=== PATIENT | female | born 1965 | race Caucasian/White ===

== ENCOUNTER 2019-05-24 05:35 | Inpatient (IN) | payer BC ==
[2019-05-24] MEDS ORDERED: Celecoxib 200 MG Cap PO ONE (06:22)
[2019-05-24] MEDS ORDERED: Scopolamine 1.5 MG Transdermal Patch TOP ONE (06:22)
[2019-05-24] MEDS ORDERED: Gabapentin 300 MG Cap PO ONE (06:23)
[2019-05-24] MEDS ORDERED: Acetaminophen 500 MG Tab PO ONE (06:23)
[2019-05-24] MEDS ORDERED: cefOXitin 2 GM in Sodium Chloride 0.9% 50 ML IV ONE (06:24)
[2019-05-24] MEDS ORDERED: Dextrose 5%-Lactated Ringers 1,000 ML IV SCH ×2 (06:30→11:15)
[2019-05-24 07:03] LABS: HEMOGLOBIN A1C 8.5 % (4.5-6.2)
[2019-05-24] MEDS ORDERED: fentaNYL 250 MCG/5 ML SDV ONE (07:04)
[2019-05-24] MEDS ORDERED: Rocuronium 50 MG/5 ML Vial ONE (07:05)
[2019-05-24] MEDS ORDERED: Dexamethasone 4 MG/ML SDV ONE (07:05)
[2019-05-24] MEDS ORDERED: Succinylcholine 200 MG/10 ML MDV ONE (07:05)
[2019-05-24] MEDS ORDERED: Glycopyrrolate 0.2 MG/ML 5 ML MDV ONE (07:05)
[2019-05-24] MEDS ORDERED: Propofol 200 MG/20 ML SDV ONE (07:05)
[2019-05-24] MEDS ORDERED: Neostigmine Methylsulfate 1 MG/ML 5 ML Syringe ONE (07:05)
[2019-05-24] MEDS ORDERED: Ondansetron 4 MG/2 ML SDV ONE (07:05)
[2019-05-24] MEDS ORDERED: Lactated Ringers 1,000 ML ONE (07:09)
[2019-05-24] MEDS ORDERED: Propranolol 40 MG Tab PO ONE (07:15)
[2019-05-24] MEDS ORDERED: Ketamine 500 MG/5 ML MDV IV SCH (07:30)
[2019-05-24] MEDS ORDERED: Lidocaine 2% 100 MG/5 ML Syringe IVPUSH SCH (07:30)
[2019-05-24] MEDS ORDERED: Ketamine 50 MG in Sodium Chloride 0.9% 49.5 ML IV SCH (07:30)
[2019-05-24] MEDS ORDERED: cefOXitin 2 GM Vial ONE (07:37)
[2019-05-24] MEDS: Insulin Lispro 100 Unit/ML 3 ML KwikPen SUBCUT PRN ×3 (09:38→22:56)
[2019-05-24] MEDS ORDERED: SCOPOLAMINE PATCH CHECK TOP SCH (11:16)
[2019-05-24] MEDS ORDERED: Metoclopramide 10 MG/2 ML SDV IVPUSH PRN (11:16)
[2019-05-24] MEDS ORDERED: HYDROmorphone 0.5 MG/0.5 ML Syringe IVPUSH PRN (11:16)
[2019-05-24] MEDS ORDERED: HYDROmorphone 1 MG/ML Syringe IV PRN (11:16)
[2019-05-24] MEDS ORDERED: hydrOXYzine HCL 100 MG/2 ML SDV IM PRN (11:16)
[2019-05-24] MEDS ORDERED: Labetalol 20 MG/4 ML Syringe IVPUSH PRN (11:16)
[2019-05-24] MEDS ORDERED: diphenhydrAMINE 50 MG/ML SDV IVPUSH PRN (11:16)
[2019-05-24] MEDS ORDERED: Ondansetron 4 MG/2 ML SDV IVPUSH PRN (11:16)
[2019-05-24] MEDS ORDERED: Cyclobenzaprine 10 MG Tab PO PRN (11:28)
[2019-05-24] MEDS ORDERED: oxyCODONE 5 MG Tab PO PRN (11:29)
[2019-05-24] MEDS: Lidocaine 0.4%/D5W 2 GM/500 ML BAG IV SCH (11:35)
[2019-05-24] MEDS: Lactated Ringers 1,000 ML IV SCH (11:35)
[2019-05-24] MEDS: Pantoprazole 40 MG Vial IVPUSH SCH (12:46)
[2019-05-24] MEDS: cefOXitin 2 GM in Sodium Chloride 0.9% 50 ML IV SCH ×2 (12:47→17:41)
[2019-05-24] MEDS: Acetaminophen 500 MG Tab PO SCH ×2 (14:27→21:06)
[2019-05-24] MEDS: amLODIPine 5 MG Tab PO SCH (14:27)
[2019-05-24] MEDS: Magnesium Sulfate/Water 2 GM in Premix Bag 1 BAG IV SCH ×2 (14:28→21:00)
[2019-05-24] MEDS: Propranolol 40 MG Tab PO SCH ×2 (14:28→21:05)
[2019-05-24] MEDS: Gabapentin 250 MG/5 ML Solution ML 470 ML Bottle PO SCH ×2 (14:28→20:59)
[2019-05-24] MEDS ORDERED: Acetaminophen 500 MG Tab PO PRN (16:00)
[2019-05-24] MEDS: Heparin Sodium 5,000 Units/ML Vial SUBCUT SCH (16:27)
[2019-05-24] MEDS: MVI, Adult with Vitamin K 10 ML, Thiamine 200 MG, Chromium/Copper/Mang/Selen/Zn 1 ML in... IV SCH ×4 (16:36)
[2019-05-24] MEDS ORDERED: metFORMIN 500 MG/5 ML PO SCH (17:00)
[2019-05-24] MEDS: Venlafaxine 75 MG Tab PO SCH (21:04)
[2019-05-25] MEDS: cefOXitin 2 GM in Sodium Chloride 0.9% 50 ML IV SCH (01:28)
[2019-05-25] MEDS: Magnesium Sulfate/Water 2 GM in Premix Bag 1 BAG IV SCH ×4 (02:58→20:21)
[2019-05-25] MEDS: Lactated Ringers 1,000 ML IV SCH ×2 (02:58→13:26)
[2019-05-25] MEDS: Heparin Sodium 5,000 Units/ML Vial SUBCUT SCH ×2 (03:02→15:16)
[2019-05-25] MEDS ORDERED: Iopamidol 612 MG/ML 50 ML SDV PO STA (03:07)
--- NOTE | 2019-05-25 04:46 | CRLCR ---
Indication: Status post Zelda-en-Y Technique: Two views of the abdomen obtained following the administration of oral contrast. Comparison: None available Findings/Impression : A left upper quadrant surgical drain. Cholecystectomy and right lower quadrant surgical clips. Oral contrast opacifies the distal esophagus and proximal jejunum on the 1st image, with progression of contrast into more distal left abdominal jejunal segments on the 2nd image. No gross extravasation seen. Dictated by Ronak Serra MD @ 05/25/2019 4:45:17 AM Dictated by: Ronak Serra MD @ 05/25/2019 04:45:24 (Electronically Signed)
[2019-05-25] MEDS: Acetaminophen 500 MG Tab PO SCH ×3 (05:40→22:52)
[2019-05-25] MEDS ORDERED: Ondansetron 4 MG Tab.DIS PO PRN (07:05)
--- NOTE | 2019-05-25 07:29 | PN ---
DATE OF SERVICE: 05/25/2019 SUBJECTIVE: Marley is postoperative day# 1 following a Zelda-en-Y gastric bypass surgery. Vital signs have been stable. Her pain has been well managed. She is at 720 mL in of step 1 gastric bypass diet, 1200 out. Her ANJALI drain put out 70 mL of a serosanguineous drainage. Blood sugars have been 230, 281, and the last one was 257. She is getting the magnesium for a magnesium of 1.7. REVIEW OF SYSTEMS: Remainder of review of systems negative for any pertinent positives and negatives. PHYSICAL EXAMINATION: GENERAL: Marely Stock is a pleasant 54-year-old female. VITAL SIGNS: TPR is 97.4, 71, 18, blood pressure is 95/57. HEENT: Negative. NECK: Supple. HEART: Regular rate and rhythm. LUNGS: Clear. ABDOMEN: Dressings dry and intact. Abdominal binder is on. ANJALI drain as above. EXTREMITIES: Without peripheral edema. ASSESSMENT: 1. Laparoscopic Zelda-en-Y gastric bypass surgery, liver biopsy, repair of diaphragmatic hernia, and excision of mediastinal lipoma for morbid obesity, hepatomegaly, diaphragmatic hernia, and mediastinal lipoma. Date of surgery: 05/24/2019. Surgeon: Fabricio Taylor MD. 2. Uncontrolled diabetes. Last A1c 8.5. 3. Hypomagnesemia. 4. Morbid obesity, BMI 45. 5. Hyperlipidemia. 6. Hypertension. 7. Elevated liver function tests. 8. Major depression. 9. Crawley esophagus. 10.Migraine headache without aura. PLAN: 1. Discontinue D5LR IV. 2. Continue lactated Ringer's IV running at 100 mL/h. 3. Rx metformin 1000 mg b.i.d. 4. Communication order: 3 med cups per hour, 1 every 20 minutes. 5. Dressing off, may shower. 6. Step 2 gastric bypass diet with no cereal. 7. Good pulmonary toilet. 8. We will evaluate p.r.n. or in a.m. Kaitlin Nugent PA-C /[id number]
[2019-05-25] MEDS: Venlafaxine 75 MG Tab PO SCH ×2 (08:53→20:23)
[2019-05-25] MEDS: Celecoxib 200 MG Cap PO SCH ×2 (08:53→20:22)
[2019-05-25] MEDS: Propranolol 40 MG Tab PO SCH ×3 (08:53→20:23)
[2019-05-25] MEDS: amLODIPine 5 MG Tab PO SCH (08:55)
[2019-05-25] MEDS ORDERED: [UNRECOGNIZED DRUG - REMARK] TOP SCH (09:00)
[2019-05-25] MEDS: Gabapentin 250 MG/5 ML Solution ML 470 ML Bottle PO SCH ×3 (09:00→20:21)
--- NOTE | 2019-05-25 11:22 | OR ---
DATE OF PROCEDURE: 05/24/2019 SURGEON: Fabricio Taylor MD PREOPERATIVE DIAGNOSES: 1. Morbid obesity. 2. Elevated liver function test. POSTOPERATIVE DIAGNOSES: 1. Morbid obesity. 2. Marked hepatomegaly with elevated liver function test. 3. Paraesophageal diaphragmatic hernia. 4. Mediastinal lipoma. OPERATIVE PROCEDURES: Diagnostic laparoscopy with: 1. Laparoscopic Zelda-en-Y gastric bypass with long-limb gastroenterostomy (73882). 2. Dameon-Cut needle liver biopsy (65130). 3. Repair of paraesophageal diaphragmatic hernia (43502). 4. Excision of mediastinal lipoma (36487). ANESTHESIA: General. INDICATION FOR PROCEDURE: This is a 54-year-old female presenting with longstanding morbid obesity and increasingly significant comorbidities. After preoperative evaluation and discussion, she wished to proceed with a gastric bypass procedure. Potential risks of the procedure including bleeding, infection, leaks from various GI tract closures, problems with bowel obstruction over time, as well as possibility of cardiopulmonary, septic, or hemorrhagic complications leading to were discussed, and the patient wishes to proceed. DETAILS OF PROCEDURE: The patient was taken to the operating room and placed in a supine position. After general endotracheal anesthesia was induced, she was converted to a lithotomy position, and the abdomen was prepped and draped. At 15 cm inferior and 5 cm left of the xiphoid process, a transverse incision was made, and the peritoneal cavity entered under direct vision with an Optiview trocar, inflated to 15 mmHg pressure with CO2. Laparoscope was reinserted and no underlying trocar insertion site injuries were seen. Following this, 5 additional trocars were placed across the upper and mid abdomen and bilateral transversus abdominis plane blocks. Initial examination of the liver showed it to be strikingly enlarged. Liver was quite pale and edematous, indicative of fairly active inflammation. Dameon-Cut needle biopsy was obtained from the left lobe of liver. Minimal bleeding from the biopsy sites was controlled with electrocautery. The omentum was then divided in the midline up to the level of the transverse colon. This allowed identification of the small bowel at the ligament of Treitz. Small bowel was traced out 150 cm distal to that point. This was further divided transversely with a REE stapler. Small bowel was then traced out additional 150 cm, where the [id number] enteroenterostomy was accomplished with an internal firing of the Endo-REE 60 mm stapler. Common opening was then closed transversely with the same stapler and angles anastomosed and mesenteric defect approximated with some 0 Ethibond stitch, along with 4 mL of fibrin sealant. Divided end of the Zelda limb was then from mesentery for a few centimeters, which allowed an antecolic position of the Zelda limb up to the level of the gastroesophageal junction without tension. The liver was then retracted anteriorly. The patient was noted to have a moderate-sized paraesophageal hernia. This contained some perigastric fat and some gastric fundus prolapsing in a plane anterior to the course of the esophagus. This was reduced and peritoneum overlying was incised and reflected downward. The patient had a mediastinal lipoma, which was excised as part of the dissection to facilitate a more adequate crural repair. Crural repair was then accomplished anteriorly with 0 Ethibond sutures reinforced with PTFE pledgets. Gastrointestinal balloon catheter was then inflated to 15 mL and pulled up snugly against the EG junction. Gastric wall over the apex of balloon was then marked with electrocautery, balloon catheter deflated and pulled up in the esophagus. The lesser omental tissue adjacent to the gastric cardia was then incised allowing a dissection behind the stomach at the level of the cauterized alma. At that point, the pouch formation was initiated with transverse firing of the REE stapler. Pouch was then completed with additional firings of REE staplers up to and through the angle of His. Upon completion of the pouch, both staple lines were noted to be intact. The anvil of a 25-mm EEA stapler was attached to [place] sump type tube, latter was brought down through the mouth, and taken out a small opening in the gastric pouch, allowing the anvil likewise to be pulled down to within the gastric pouch. The divided end of the Zelda limb was then opened and main body EEA stapler was passed several centimeters into the lumen of the small bowel, brought up through the anvil and united with it, thus creating the gastrojejunostomy. Upon removal of stapler, double donuts of mucosa were noted within the small bowel. This was closed off with a REE staple line. Gastrojejunostomy was reinforced with some 3-0 Vicryl seromuscular stitch, along with 4 mL of fibrin sealant. The leak test was accomplished with injection of 120 mL of air in the gastric pouch while it was submerged within cefoxitin-containing saline solution. No leaks were identified. A single Anil- Majano drain was then taken out through the left lateral trocar site, placed adjacent to the gastrojejunostomy, and from there up into the splenic fossa. With no further problems, trocars were removed and the peritoneal cavity deflated. Incisions were closed with 4-0 Vicryl skin stitch. Drain was affixed with some 4-0 Vicryl skin stitch as well. The patient was taken to the recovery room in satisfactory condition. There were no evident complications. Fabricio Taylor MD /[id number]
[2019-05-25] MEDS: Lidocaine 0.4%/D5W 2 GM/500 ML BAG IV SCH (12:22)
[2019-05-25] MEDS ORDERED: Pantoprazole 40 MG Tab.CR PO SCH (16:00)
[2019-05-25] MEDS: Pantoprazole 40 MG Vial IVPUSH SCH (17:26)
[2019-05-25] MEDS: MVI, Adult with Vitamin K 10 ML, Thiamine 200 MG, Chromium/Copper/Mang/Selen/Zn 1 ML in... IV SCH ×4 (17:58)
[2019-05-26] MEDS: Heparin Sodium 5,000 Units/ML Vial SUBCUT SCH (03:21)
[2019-05-26] MEDS: Magnesium Sulfate/Water 2 GM in Premix Bag 1 BAG IV SCH ×2 (03:22→07:23)
[2019-05-26] MEDS: Lactated Ringers 1,000 ML IV SCH (03:24)
[2019-05-26] MEDS: Acetaminophen 500 MG Tab PO SCH (05:29)
--- NOTE | 2019-05-26 08:10 | DISCH ---
ADMISSION DIAGNOSES: 1. Morbid obesity. 2. BMI 45.6. 3. Type 2 diabetes, uncontrolled. Hemoglobin A1c 8.5. 4. Hypomagnesemia, chronic. 5. Sleep apnea with use of CPAP. 6. Hyperlipidemia. 7. Hypertension. 8. Elevated liver function tests. 9. Major depression. 10.Crawley's esophagus. 11.Migraine headache without aura. DISCHARGE DIAGNOSES: 1. Laparoscopic Zelda-en-Y gastric bypass surgery. 2. Liver biopsy. 3. Repair of diaphragmatic hernia. 4. Excision of mediastinal lipoma. POSTOPERATIVE DIAGNOSES: 1. Morbid obesity. 2. Hepatomegaly. 3. Diaphragmatic hernia. 4. Mediastinal lipoma. Date of surgery: 05/24/2019. Surgeon: Fabricio Taylor MD. HISTORY: Marely Stock is a 54-year-old female with longstanding history of morbid obesity and increasing comorbidities. After preoperative evaluation and discussion of possible risks and possible complications, she wished to proceed with surgical procedure. HOSPITAL COURSE: Marely had her surgery on 05/24/2019. She had no operative complications. On postoperative day #1, she was advanced to step-2, with no cereal gastric bypass diet. Her IV was decreased to 100 mL per hour. She received dietary instruction. Her pain was well managed and her activity was good. On postoperative day #2, her blood sugar was 137. She received adequate dietary instruction, postop instructions, vitamin B12 1000 mcg IM injection. She was able to be discharged to home without any complications. PHYSICAL EXAMINATION: GENERAL: Marely Stock is a pleasant 54-year-old female. VITAL SIGNS: Height is 5 feet 1 inch, weight is 241 pounds and 2 ounces, BMI is 45.6. TPR 97.3, 60, 18, blood pressure 112/58. HEENT: Negative. NECK: Supple. HEART: Regular rate and rhythm. LUNGS: Clear. ABDOMEN: Sutures intact. Incisions look good. ANJALI drain will be removed and 4x4s placed over ANJALI drain site. Abdominal binder has been on. EXTREMITIES: Without peripheral edema. DISPOSITION: Discharged to home. CONDITION: Stable and improving. FOLLOWUP: Appointment with Kaitlin Nugent PA-C on 06/07/2019 at 11:15 a.m., appointment at [place], [place]. HOME MEDICATIONS: 1. Tylenol Extra Strength 1000 mg oral q.8 hours p.r.n. pain. 2. Milk of magnesia 30 mL, 2 were sent home with the patient for constipation, take 1 today when she gets home and 1 tomorrow, 2 doses were sent home with the patient. 3. Metformin 500 mg oral twice daily with food. 4. Zofran ODT 4 mg q.4 hours p.r.n. nausea, #30. 5. Celebrex 200 mg and she is to start taking that tomorrow once a day for 14 days. 6. Lexapro 20 mg oral daily. 7. Magnesium chloride 128 mg oral twice daily. 8. Omeprazole 20 mg oral daily. 9. Propranolol 20 mg oral 3 times a day. 10.Venlafaxine/Effexor 37.5 mg oral twice daily. 11.Amlodipine besylate-benazepril (Lotrel 5/40 mg 1 capsule daily. 12.Lipitor 10 mg oral daily. 13.Discontinue taking vitamin D3, B12, Januvia, and the 1000 mg of metformin that she was taking in the morning. DIET: Step 2 gastric bypass diet with no cereal until 06/08/2019. ACTIVITY AFTER DISCHARGE: No lifting over 10 pounds for 2 weeks. Driving: Do not drive for 1 week. Shower/bathing: May shower. DISCHARGE INSTRUCTIONS: Notify provider if any fever, increased pain, nausea, or vomiting. Wound incision care; keep site clean and dry. Wear abdominal binder for 2 weeks and then as tolerated. SPECIAL INSTRUCTIONS: 1. Use incentive spirometer 10 times every hour while awake for 1 week. 2. Check blood sugars once in the morning before anything to eat or drink and then 2 hours after evening meal. Call us on Thursday with the blood sugar readings at [phone].
[2019-05-26] MEDS ORDERED: Cyanocobalamin (Vitamin B12) 1,000 MCG/ML SDV IM ONE (09:00)
[2019-05-26] MEDS: Celecoxib 200 MG Cap PO SCH (10:26)
[2019-05-26] MEDS: Venlafaxine 75 MG Tab PO SCH (10:26)
[2019-05-26] MEDS: Propranolol 40 MG Tab PO SCH (10:27)
[2019-05-26] MEDS: Gabapentin 250 MG/5 ML Solution ML 470 ML Bottle PO SCH (10:31)
[2019-05-26] MEDS: amLODIPine 5 MG Tab PO SCH (10:46)
== END 2019-05-26 12:10 | disposition home or self-care (01) | DRG 403 ==
LOC: JP.SDSSCHI 05:35 → JP.SDS 05:35 → JP.2SS 09:15 → EDSTATUS 09:45
PROVIDERS: ADMIT Surgery; ATTEND Surgery
PROC: 0D164ZA Bypass Stomach to Jejunum, Percutaneous Endoscopic Approach (ICD-10-PCS; principal; 2019-05-24)
PROC: 0FB24ZX Excision of Left Lobe Liver, Percutaneous Endoscopic Approach, Diagnostic (ICD-10-PCS; 2019-05-24)
PROC: 0BQT4ZZ Repair Diaphragm, Percutaneous Endoscopic Approach (ICD-10-PCS; 2019-05-24)
PROC: 0WBC4ZZ Excision of Mediastinum, Percutaneous Endoscopic Approach (ICD-10-PCS; 2019-05-24)
DX: E66.01 Morbid (severe) obesity due to excess calories (principal); Z68.42 Body mass index [BMI] 45.0-49.9, adult; E11.9 Type 2 diabetes mellitus without complications; E83.42 Hypomagnesemia; E78.5 Hyperlipidemia, unspecified; I10 Essential (primary) hypertension; F32.9 Major depressive disorder, single episode, unspecified; K22.70 Barrett's esophagus without dysplasia; R79.89 Other specified abnormal findings of blood chemistry; G43.009 Migraine without aura, not intractable, without status migrainosus; D17.4 Benign lipomatous neoplasm of intrathoracic organs; R16.0 Hepatomegaly, not elsewhere classified; K21.9 Gastro-esophageal reflux disease without esophagitis; G47.33 Obstructive sleep apnea (adult) (pediatric); M19.90 Unspecified osteoarthritis, unspecified site; D35.00 Benign neoplasm of unspecified adrenal gland; Z79.899 Other long term (current) drug therapy; Z79.84 Long term (current) use of oral hypoglycemic drugs; Z99.81 Dependence on supplemental oxygen; Z88.0 Allergy status to penicillin; Z88.8 Allergy status to other drugs, medicaments and biological substances
CPT/HCPCS: 36415; 74240; 82962; 83036; 83735; 84100; 86850; 86900; 86901; A9270-GY; C9113; J0171; J0330; J0694; J1100; J1644; J1815; J1815-GY; J2001; J2405; J2704; J2710; J2795; J3010; J3411; J3420; J3475; J3490; J7050; J7120; J7121; Q9967